=== PATIENT | female | born 1995 | race African-American/Black ===

== ENCOUNTER 2022-03-21 06:13 | Emergency (ER) | payer OTHER, MEDICAID, SELFPAY ==
[2022-03-21 06:12] VITALS: BP 128/83; PULSE 110; RESP 18; TEMP 36.7; O2SAT 100
--- NOTE | 2022-03-21 06:35 | PC.NURSE ---
bedside negative. erp notified.
--- NOTE | 2022-03-21 06:54 | ED.GENADULT ---
HPI - General Adult General Chief complaint: Abdominal Pain Stated complaint: ABD PAIN 1 MONTH PREG Time Seen by Provider: 03/21/22 06:52 History of Present Illness HPI narrative: 26-year-old female presenting to the emergency department with police custody for complaint of blood-tinged urine when she wiped. Patient is also complaining of some suprapubic abdominal pain. Patient states that she took a test approximately 1 month ago that was positive. Patient's test is negative today. Patient states she has associated nausea without vomiting. Patient denies any other/abdominal pain. Patient denies any associated chest pain or shortness of breath. Related Data Allergies Allergy/AdvReac Type Severity Reaction Status Date / Time No Known Allergies Allergy Unverified 08/04/17 13:26 Review of Systems Review of Systems: CONSTITUTIONAL: Denies fever, chills, or sweats. EYES: Denies visual changes, redness, or discharge. ENT: Denies rhinorrhea, congestion, sore throat, or otalgia. CARDIOVASCULAR: Denies chest pain, palpitations, or edema. RESPIRATORY: Denies cough or dyspnea. GASTROINTESTINAL: Denies abdominal pain, nausea, vomiting, or diarrhea. GENITOURINARY: See HPI SKIN: Denies rash or itching. MUSCULOSKELETAL: Denies back pain, joint pain, or myalgia. NEUROLOGIC: Denies headache, numbness, or weakness. Exam Narrative: APPEARANCE: Well appearing, no pain, no distress, well-nourished. HEAD: normocephalic, atraumatic. EYES: PERRLA/EOMI, conjunctivae clear. NOSE: Normal no drainage EARS:TMS clear with good light reflex. THROAT: Pharynx clear, no exudate. NECK: Supple. No adenopathy, no masses. RESPIRATORY: Airway patent, respirations nonlabored. Clear to auscultation bilaterally, no rales, rhonchi, wheezing. CARDIOVASCULAR: Regular rate and rhythm without murmurs rubs or gallops. ABDOMINAL: Soft, suprapubic abdominal pain MUSCULOSKELETAL: Moves all extremities. Strength/ROM intact, No edema, No calf tenderness. NEURO: Alert. Cranial nerves II through XII intact. Grossly intact SKIN: Warm, dry. Normal Color Course Course Emergency Course: Patient's test was negative. Urine culture is pending. Patient was discharged back and encouraged to have close follow-up Vital Signs Vital signs: Vital Signs Temperature 98.1 F 03/21/22 06:12 Pulse Rate 110 H 03/21/22 06:12 Respiratory Rate 18 03/21/22 06:12 Blood Pressure 128/83 03/21/22 06:12 Pulse Oximetry 100 03/21/22 06:12 Oxygen Delivery Room Air 03/21/22 06:12 Temperature 98.1 F 03/21/22 06:12 Pulse Rate 72 03/21/22 08:25 Respiratory Rate 18 03/21/22 08:25 Blood Pressure 125/88 03/21/22 08:25 Pulse Oximetry 98 03/21/22 08:25 Oxygen Delivery Room Air 03/21/22 06:12 Medical Decision Making Vital Signs Vital Signs: Vital Signs Temperature 98.1 F 03/21/22 06:12 Pulse Rate 110 H 03/21/22 06:12 Respiratory Rate 18 03/21/22 06:12 Blood Pressure 128/83 03/21/22 06:12 Pulse Oximetry 100 03/21/22 06:12 Oxygen Delivery Room Air 03/21/22 06:12 Temperature 98.1 F 03/21/22 06:12 Pulse Rate 72 03/21/22 08:25 Respiratory Rate 18 03/21/22 08:25 Blood Pressure 125/88 03/21/22 08:25 Pulse Oximetry 98 03/21/22 08:25 Oxygen Delivery Room Air 03/21/22 06:12 Lab Data Labs: Lab Results 03/21/22 Range/Units 07:16 Urine Color Yellow (Yellow) Urine Appearance Clear (Clear) Urine pH 6.5 (5.0-9.0) Ur Specific [place] 1.025 (1.001-1.035) Urine Protein Negative (Negative) mg/dL Urine Glucose (UA) Negative (Negative) mg/dL Urine Ketones 2+ H (Negative) mg/dL Ur Blood (Man) Negative (Negative) Urine Nitrate Negative (Negative) Urine Bilirubin Negative (Negative) Urine Urobilinogen 0.2 (<2.0) mg/dL Leukocyte Esterase Rfl Negative (Negative) FAITH/UL Urine RBC 3-5 H (0-2) /hpf Urine WBC 0-3 /hpf Ur Squamous Epith Cells
[2022-03-21 07:11] VITALS: BP 118/88; PULSE 93; RESP 18; O2SAT 98
[2022-03-21 07:26] LABS: Add Urine Microscopic? YES; Appearance Urine Clear (Clear); Bilirubin Urine Negative (Negative); Blood Urine Negative (Negative); Color Urine Yellow (Yellow); Glucose Urine UA Negative (Negative); Ketones Urine 2+ mg/dL (Negative); Leukocyte Esterase Ur Negative LEU/UL (Negative); Nitrate Urine Negative (Negative); Protein Urine Negative (Negative); Specific Grav Ur 1.025 (1.001-1.035); Urobilinogen Urine 0.2 mg/dL (<2.0); pH Urine 6.5 (5.0-9.0)
[2022-03-21 07:31] LABS: Bacteria Urine Trace /hpf; Mucus Urine Heavy /lpf; Squamous Epithelial Cell Urine Many /hpf (Few); WBC Urine 0-3 /hpf
[2022-03-21] MEDS: ACETAMINOPHEN 500 MG TABLET 1000 MG PO (07:39)
[2022-03-21 08:25] VITALS: BP 125/88; PULSE 72; RESP 18; O2SAT 98
== END 2022-03-21 08:25 | disposition home or self-care (01) ==
PROVIDERS: Emergency Provider Emergency Medicine
DX: N39.0 Urinary tract infection, site not specified (principal); R31.9 Hematuria, unspecified
CPT/HCPCS: 81001; 81025; 87086; 87088; 99283; A9270